=== PATIENT | female | born 1985 | race Caucasian/White ===

== ENCOUNTER 2017-04-26 20:26 | Emergency (ER) | payer BC ==
[~2017-04-26] VITALS: Ht 177.8 cm; Wt 102.0 kg
[~2017-04-26 20:26] MED LIST: IBUP600 PO; IRON18TA; PREN0.01 PO; [UNRECOGNIZED DRUG - REMARK]
[2017-04-26 20:33] VITALS: BP 122/72; PULSE 90; RESP 18; TEMP 97.6; O2SAT 98
[2017-04-26] MEDS ORDERED: ORTHTAB4 PO (20:48)
[2017-04-26] MEDS ORDERED: MEDR4PAK PO (21:14)
[2017-04-26] MEDS ORDERED: CLAR5TAB9 PO (21:14)
--- NOTE | 2017-04-26 21:14 | PD ---
HPI Chief Complaint: ENT Complaint Time Seen by Provider: 20:55 Travel History International Travel<30 days: No Contact w/Intl Traveler<30days: No Traveled to known affect area: No History of Present Illness HPI The patient is a 31-year-old female who presents emergency department for frontal facial pressure, sinus drainage, and headache. The patient has a history of sinusitis and underwent an ENT procedure within the last several years for chronic sinusitis. The patient had been doing well until last week when she developed frontal facial pain over the frontal sinuses and right maxillary sinus. She also complains of thick, green colored nasal drainage as well as occasional epistaxis. She also notes a frontal headache associated with the recent infection. She denies any actual fever, neck pain, chills, or sweats. Symptoms are moderate, possibly exacerbated by underlying sinus infection, and there are no current alleviating factors. The patient did go to an urgent care 1 week ago and was prescribed Augmentin, however, she did not start the Augmentin. PFSH Past Medical History Asthma: No COPD: No Diminished Hearing: No Medical other: Yes (recurrent sinus infections) Immunizations Current: No Tetanus Vaccination: > 5 Years Influenza Vaccination: Yes ?: Not LMP: 04/12/17 : 0 Past Surgical History Narrative Surgical Sinus surgery Tonsillectomy: Yes Social History Alcohol Use: Yes (socially ) Tobacco Use: No Substance Use: No Allergies-Medications (Allergen,Severity, Reaction): Coded Allergies: codeine (Unverified Allergy, Severe, Nausea/Vomiting, 04/26/17) morphine (Unverified Allergy, Severe, Nausea/Vomiting, 04/26/17) Reported Meds & Prescriptions Reported Meds & Active Scripts Active Reported Ortho Tri-Cyclen (Norgestimate-Ethinyl Estradiol) 0.18/0.215/0.25 mg-35 Mcg Tab 1 Tab PO DAILY Review of Systems General / Constitutional: No: Fever, Chills HENT: Positive: Headaches, Congestion, Nosebleed, Other (as noted in history of present illness) Respiratory: No: Cough Gastrointestinal: No: Nausea, Vomiting Musculoskeletal: No: Myalgias, Arthralgias Skin: No Rash Physical Exam Narrative GENERAL: Awake, alert, nontoxic-appearing 31-year-old female who appears her stated age and is in no acute respiratory distress. SKIN: Focused skin assessment warm/dry. HEAD: Atraumatic. Normocephalic. EYES: Pupils equal and round. No scleral icterus. No injection or drainage. ENT: Tenderness of the right maxillary sinus and the frontal sinuses bilaterally. No tenderness of the left maxillary sinus. Or fractures reveals cobblestoning. TMs are dull but no erythema or bulging. EACs are clear. NECK: Trachea midline. No JVD. No meningeal signs noted. MUSCULOSKELETAL: No obvious deformities. No clubbing. No cyanosis. No edema. NEUROLOGICAL: Awake and alert. No obvious cranial nerve deficits. Motor grossly within normal limits. Normal speech. PSYCHIATRIC: Appropriate mood and affect; insight and judgment normal. Data Data Last Documented VS Vital Signs Date Time Temp Pulse Resp B/P (MAP) Pulse Ox O2 Delivery O2 Flow Rate FiO2 04/26/17 20:48 (89) 04/26/17 20:33 97.6 90 18 98 MDM Medical Decision Making Medical Screen Exam Complete: Yes Emergency Medical Condition: Yes Medical Record Reviewed: Yes Differential Diagnosis Differential diagnosis includes sinusitis, URI, cavernous sinus thrombosis, otitis media, serous otitis, eustachian tube dysfunction. Narrative Course The patient's history and physical are consistent with sinusitis. The patient already has prescription for Augmentin. I will write for Medrol Dosepak and Claritin-D. She is advised to follow-up with her primary physician and/or ENT if symptoms persist. Patient is stable for outpatient follow-up. Diagnosis Primary Impression: Sinusitis Qualified Codes: J01.11 - Acute recurrent frontal sinusitis Patient Instructions: General Instructions Additional Instructions: take Augmentin as previously prescribed. Medrol Dosepak and Claritin-D as directed. Follow-up with your primary physician and/or ENT if symptoms persist. Med/Other Pt SpecificInfo: Prescription(s) given Scripts Loratadine-Pseudoephedrine 12 HR (Claritin-D 12 HR) 5-120 Mg Tab 1 TAB PO BID for Allergy Management for 10 Days, #20 TAB 0 Refills Prov: Srinivasa Santiago MD 04/26/17 Methylprednisolone Dosepak (Medrol Dosepak) 4 Mg Dspk 4 MG PO DIRECTED, #1 DSPK 0 Refills Per Pharmacist direction Prov: Srinivasa Santiago MD 04/26/17 Disposition: 01 DISCHARGE HOME Condition: Stable Srinivasa Santiago MD Apr 26, 2017 21:14
== END 2017-04-26 21:20 | disposition home or self-care (01) ==
LOC: MERGE 20:26 → PHEFT 20:26
DX: J01.11 Acute recurrent frontal sinusitis (principal); Z79.899 Other long term (current) drug therapy
CPT/HCPCS: 99283